=== PATIENT | female | born 1995 | race Two or more races ===

== ENCOUNTER 2018-09-13 03:36 | Inpatient (IN) | payer OTHER ==
[~2018-09-13] VITALS: Ht 165.1 cm; Wt 92.0 kg
[2018-09-13 04:03] LABS: MICROSCOPIC INDICATED
[2018-09-13] MEDS ORDERED: ONDANSETRON 2MG/ML, 2ML ONE (04:20)
[2018-09-13] MEDS ORDERED: ONDANSETRON 2MG/ML, 2ML IVPush PRN ×2 (04:30→06:00)
[2018-09-13] MEDS: LACTATED RINGERS 1,000 ML IV SCH ×3 (04:35→17:32)
[2018-09-13 04:49] LABS: BASOPHILS # (AUTO) 0.02 x10^3/uL (0-0.1); BASOPHILS % (AUTO) 0 % (0-1); EOSINOPHILS # (AUTO) 0.06 x10^3/uL (0-0.4); EOSINOPHILS % (AUTO) 1 % (1-7); LYMPHOCYTES # (AUTO) 1.64 x10^3/uL (1-3.4); LYMPHOCYTES % (AUTO) 12 % (22-44); MD NO; MEAN CORPUSCULAR HEMOGLOBIN 29.4 pg (27.0-34.8); MEAN CORPUSCULAR HGB CONC 33.7 g/dL (32.4-35.8); MEAN CORPUSCULAR VOLUME 87.3 fL (80-100); MEAN PLATELET VOLUME 8.6 fL (7.4-10.4); MONOCYTES # (AUTO) 0.57 x10^3/uL (0.2-0.8); MONOCYTES % (AUTO) 4 % (2-9); NEUTROPHILS # (AUTO) 11.42 x10^3/uL (1.8-6.8); NEUTROPHILS % (AUTO) 83 % (42-75); PLATELET COUNT 314 x10^3/uL (130-400); RED BLOOD COUNT 4.01 x10^6/uL (3.82-5.3); RED CELL DISTRIBUTION WIDTH 13.1 % (9.6-15.2)
[2018-09-13 04:58] LABS: ALBUMIN 2.9 g/dL (3.4-5.0); ANION GAP 11 mmol/L (5-15); CALCIUM 9.8 mg/dL (8.5-10.1); CHLORIDE 106 mmol/L (98-107)
[2018-09-13 05:00] LABS: ALANINE AMINOTRANSFERASE 17 U/L (12-78); ALKALINE PHOSPHATASE 80 U/L (45-117); BILIRUBIN,TOTAL 0.2 mg/dL (0.2-1.0); CREATININE 0.62 mg/dL (0.55-1.02); TOTAL PROTEIN 6.9 g/dL (6.4-8.2)
[2018-09-13] MEDS ORDERED: LACTATED RINGERS 1,000 ML IV PRN (05:47)
[2018-09-13] MEDS ORDERED: ACETAMINOPHEN 325 MG TABLET PO PRN (06:00)
[2018-09-13] MEDS: CEFAZOLIN PMX 2GM/50ML 50 ML IV SCH ×2 (06:08→13:59)
[2018-09-13] MEDS ORDERED: ACETAMINOPHEN 325 MG TABLET ONE (06:47)
[2018-09-13] MEDS ORDERED: HYDROcodone/APAP 10/325 MG TABLET PO ONE (08:00)
[2018-09-13] MEDS ORDERED: HYDROcodone/APAP 5/325 TABLET PO PRN (08:00)
[2018-09-13] MEDS ORDERED: HYDROcodone/APAP 10/325 MG TABLET ONE (08:03)
[2018-09-13] MEDS ORDERED: MORPHINE SULFATE 4 MG/ML, 1ML IVPush PRN (17:30)
[2018-09-13] MEDS: CEFAZOLIN 2,000 MG in SODIUM CHLORIDE 0.9% 50 ML IVPB SCH (22:10)
[2018-09-14] MEDS: CEFAZOLIN 2,000 MG in SODIUM CHLORIDE 0.9% 50 ML IVPB SCH ×3 (05:56→22:08)
[2018-09-14 14:14] VITALS: BP 109/57
[2018-09-15] MEDS: CEFAZOLIN 2,000 MG in SODIUM CHLORIDE 0.9% 50 ML IVPB SCH (06:10)
== END 2018-09-15 13:05 | disposition home or self-care (01) | DRG 833 ==
LOC: LDOP 03:36 → LDIP 05:51 → OBSVTOIN 05:52 → 2NE 06:00
PROVIDERS: ADMIT Obstetrics & Gynecology; ATTEND Obstetrics & Gynecology
DX: O23.02 Infections of kidney in pregnancy, second trimester (principal); B96.20 Unspecified Escherichia coli [E. coli] as the cause of diseases classified elsewhere; Z3A.26 26 weeks gestation of pregnancy; Z88.8 Allergy status to other drugs, medicaments and biological substances
CPT/HCPCS: 36415; 76770; 80053; 81001; 85025; 87077; 87086; 87186; J0690; J2405; G0378; J7120

== ENCOUNTER 2018-12-18 21:19 | Outpatient (CLI) | payer OTHER ==
[~2018-12-18] VITALS: Ht 165.1 cm; Wt 100.2 kg
[2018-12-18 21:32] VITALS: BP 123/63
== END 2018-12-18 22:04 | disposition home or self-care (01) ==
LOC: LDOP 21:19
PROVIDERS: ATTEND Obstetrics & Gynecology
DX: O62.9 Abnormality of forces of labor, unspecified (principal); Z3A.39 39 weeks gestation of pregnancy
CPT/HCPCS: 59025; 99211; G0463

== ENCOUNTER 2018-12-19 08:30 | Inpatient (IN) | payer OTHER ==
[2018-12-18] MEDS: OXYTOCIN 30U/ 0.9% NaCL 500ML 500 ML IV SCH (20:00)
[~2018-12-19] VITALS: Ht 165.1 cm; Wt 100.0 kg
[2018-12-19 08:38] VITALS: BP 118/68
[2018-12-19] MEDS ORDERED: OXYTOCIN 30U/ 0.9% NaCL 500ML 500 ML IV ONE (09:11)
[2018-12-19] MEDS ORDERED: NEWBORN KIT ONE (09:24)
[2018-12-19] MEDS: LACTATED RINGERS 1,000 ML IV SCH ×2 (09:30→13:41)
[2018-12-19] MEDS ORDERED: FENTANYL PF 100 MCG/2ML IV PRN (09:30)
[2018-12-19 10:21] LABS: BASOPHILS # (AUTO) 0.03 x10^3/uL (0-0.1); BASOPHILS % (AUTO) 0 % (0-1); EOSINOPHILS # (AUTO) 0.08 x10^3/uL (0-0.4); EOSINOPHILS % (AUTO) 1 % (1-7); LYMPHOCYTES # (AUTO) 1.65 x10^3/uL (1-3.4); LYMPHOCYTES % (AUTO) 17 % (22-44); MD NO; MEAN CORPUSCULAR HEMOGLOBIN 26.5 pg (27.0-34.8); MEAN CORPUSCULAR HGB CONC 32.6 g/dL (32.4-35.8); MEAN CORPUSCULAR VOLUME 81.2 fL (80-100); MEAN PLATELET VOLUME 9.2 fL (7.4-10.4); MONOCYTES # (AUTO) 0.66 x10^3/uL (0.2-0.8); MONOCYTES % (AUTO) 7 % (2-9); NEUTROPHILS # (AUTO) 7.54 x10^3/uL (1.8-6.8); NEUTROPHILS % (AUTO) 76 % (42-75); PLATELET COUNT 278 x10^3/uL (130-400); RED BLOOD COUNT 4.04 x10^6/uL (3.82-5.3); RED CELL DISTRIBUTION WIDTH 14.1 % (9.6-15.2)
[2018-12-19] MEDS ORDERED: MISOPROSTOL 200 MCG TABLET ONE (11:16)
[2018-12-19] MEDS ORDERED: LIDOCAINE 1%, 20ML ONE (11:16)
[2018-12-19] MEDS ORDERED: FENTANYL PF 100 MCG/2ML ONE ×3 (13:20→16:29)
[2018-12-19] MEDS: FENTANYL PF 100 MCG/2ML IVPush PRN ×2 (13:24→16:33)
[2018-12-19] MEDS ORDERED: OXYTOCIN 30U/ 0.9% NaCL 500ML 500 ML ONE (16:24)
[2018-12-19] MEDS ORDERED: METHYLERGONOVINE 0.2 MG/ML IM PRN (17:00)
[2018-12-19] MEDS ORDERED: CALCIUM CARBONATE 500 MG TAB.CHEW PO PRN (17:00)
[2018-12-19] MEDS ORDERED: OXYcodone/APAP 5/325MG TABLET PO PRN (17:00)
[2018-12-19] MEDS ORDERED: ONDANSETRON 2MG/ML, 2ML IV PRN (17:00)
[2018-12-19] MEDS ORDERED: MISOPROSTOL 200 MCG TABLET PR PRN (17:00)
[2018-12-19 21:50] VITALS: BP 96/59
[2018-12-20 00:30] VITALS: BP 97/57
[2018-12-20 01:06] LABS: MEAN CORPUSCULAR HEMOGLOBIN 26.9 pg (27.0-34.8); MEAN CORPUSCULAR HGB CONC 33.3 g/dL (32.4-35.8); MEAN CORPUSCULAR VOLUME 80.9 fL (80-100); MEAN PLATELET VOLUME 9.5 fL (7.4-10.4); PLATELET COUNT 309 x10^3/uL (130-400); RED BLOOD COUNT 4.09 x10^6/uL (3.82-5.3); RED CELL DISTRIBUTION WIDTH 14.1 % (9.6-15.2)
[2018-12-20 01:23] LABS: BASOPHILS # (AUTO) 0.05 x10^3/uL (0-0.1); BASOPHILS % (AUTO) 0 % (0-1); EOSINOPHILS # (AUTO) 0.01 x10^3/uL (0-0.4); EOSINOPHILS % (AUTO) 0 % (1-7); LYMPHOCYTES # (AUTO) 1.84 x10^3/uL (1-3.4); LYMPHOCYTES % (AUTO) 10 % (22-44); MD SCAN; MONOCYTES # (AUTO) 1.45 x10^3/uL (0.2-0.8); MONOCYTES % (AUTO) 8 % (2-9); NEUTROPHILS # (AUTO) 14.64 x10^3/uL (1.8-6.8); NEUTROPHILS % (AUTO) 81 % (42-75)
[2018-12-20] MEDS: OXYTOCIN 30U/ 0.9% NaCL 500ML 500 ML IV SCH (02:06)
[2018-12-20 04:45] VITALS: BP 110/65
[2018-12-20] MEDS ORDERED: DOCUSATE 50 MG/5 ML, 10ML UDC PO PRN (07:00)
[2018-12-20] MEDS: IBUPROFEN 600 MG TABLET PO PRN ×2 (07:02→14:07)
[2018-12-20 07:10] VITALS: BP 106/53
[2018-12-20] MEDS ORDERED: PRENATAL VIT/IRON/FA 1 EACH TABLET PO SCH (09:00)
[2018-12-20 11:30] VITALS: BP 99/49
[2018-12-20] MEDS ORDERED: IBUP-1222 PO (16:01)
== END 2018-12-20 18:35 | disposition home or self-care (01) | DRG 807 ==
LOC: LDOP 08:30 → LDIP 09:17 → 2NW 19:55 → EDSTATUS 12-21 08:29
PROVIDERS: ADMIT Obstetrics & Gynecology; ATTEND Obstetrics & Gynecology
PROC: 10E0XZZ Delivery of Products of Conception, External Approach (ICD-10-PCS; principal; 2018-12-19)
PROC: 10907ZC Drainage of Amniotic Fluid, Therapeutic from Products of Conception, Via Natural or Artificial Opening (ICD-10-PCS; 2018-12-19)
DX: O24.420 Gestational diabetes mellitus in childbirth, diet controlled (principal); Z37.0 Single live birth; O70.1 Second degree perineal laceration during delivery; Z3A.39 39 weeks gestation of pregnancy
CPT/HCPCS: 36415; 82962; 85025; 86850; 86900; G0378; J3010; J2590; J7120